=== PATIENT | female | born 1955 | race Two or more races ===

== ENCOUNTER 2017-09-27 08:39 | Day surgery (SDC) | payer OTHER ==
[~2017-09-27 08:39] MED LIST: LIPITOR20 MG PO
[2017-09-27] MEDS ORDERED: DICLOFENAC POTA50 MG PO (14:34)
[2017-09-27] MEDS ORDERED: ZITHROMAX TRI-500 MG PO (14:34)
== END 2017-09-27 17:20 | disposition home or self-care (01) ==
LOC: CIR.AMB 08:39
DX: N84.0 Polyp of corpus uteri (principal); N95.0 Postmenopausal bleeding

== ENCOUNTER 2024-09-02 06:02 | Day surgery (SDC) | payer OTHER ==
[2024-08-26 14:08] VITALS: BP 120/60
[~2024-09-02] VITALS: Ht 154.9 cm; Wt 60.8 kg
[~2024-09-02 06:02] MED LIST changes: +ALTACE2.5 MG PO; +CARVEDILOL3.125 MG; +DAFLONEX-XL 11300 MG PO; +DICLOFENAC POTA50 MG PO; +ZITHROMAX TRI-500 MG PO
[2024-09-02] MEDS ORDERED: GENTAMICIN SULFATE 40 MG/ML VIAL ONE (11:16)
[2024-09-02] MEDS ORDERED: CHLORHEXIDINE GLUCONATE 120 ML BOTTLE TOP ONE (11:16)
[2024-09-02] MEDS ORDERED: CEFAZOLIN SODIUM 1,000 MG VIAL ONE (11:16)
[2024-09-02] MEDS ORDERED: MORPHINE SULFATE 4 MG/ML VIAL IV ONE (12:25)
[2024-09-02] MEDS ORDERED: MACROBID 100 M100 MG PO (12:41)
[2024-09-02] MEDS ORDERED: TRAM1TAB98 PO (12:42)
== END 2024-09-02 15:55 | disposition home or self-care (01) ==
LOC: CIR.AMB 06:02
PROVIDERS: ATTEND Obstetrics & Gynecology Gynecology
DX: N81.11 Cystocele, midline (principal); Z88.2 Allergy status to sulfonamides; I10 Essential (primary) hypertension; M19.90 Unspecified osteoarthritis, unspecified site; J32.9 Chronic sinusitis, unspecified